=== PATIENT | male | born 1985 | race Caucasian/White ===

== ENCOUNTER 2016-10-22 18:38 | Emergency (ER) | payer MEDICAID, OTHER ==
[~2016-10-22] VITALS: Ht 177.8 cm; Wt 77.0 kg
[2016-10-22 18:44] VITALS: Ht 177.8 cm; Wt 77.0 kg
[2016-10-22] MEDS ORDERED: ASPIRIN 325 MG TAB PO STA (20:08)
[2016-10-22] MEDS ORDERED: LORAZEPAM 1 MG TAB PO ONE (20:30)
[2016-10-22 20:55] LABS: BASOPHIL # 0.1 10^3/ul (0.0-0.1); BASOPHILS % 1.3 % (0.0-2.0); EOSINOPHILS # 0.3 10^3/ul (0.0-0.5); EOSINOPHILS % 3.3 % (0.0-7.0); HEMOGLOBIN 11.5 g/dl (14.0-18.0); LYMPHOCYTES # 3.8 10^3/ul (0.8-2.9); LYMPHOCYTES % 37.1 % (15.0-51.0); MEAN CORPUSCULAR HEMOGLOBIN 22.7 pg (29.0-33.0); MEAN CORPUSCULAR HGB CONC 30.3 g/dl (32.0-37.0); MEAN CORPUSCULAR VOLUME 75.1 fl (82.0-101.0); MEAN PLATELET VOLUME 10.2 fl (7.4-10.4); MONOCYTE # 0.7 10^3/ul (0.3-0.9); MONOCYTES % 6.4 % (0.0-11.0); NEUTROPHIL # 5.3 10^3/ul (1.6-7.5); NEUTROPHILS % 51.5 % (39.0-77.0); PLATELET COUNT 300 10^3/UL (140-415); RED BLOOD COUNT 5.06 10^6/ul (4.70-6.10); RED CELL DISTRIBUTION WIDTH 18.3 % (11.5-14.5); WHITE BLOOD COUNT 10.3 10^3/ul (4.8-10.8)
[2016-10-22 21:16] LABS: INR 0.86; PROTIME 11.7 Sec (12.2-14.2); PT RATIO 0.9
[2016-10-22 21:17] LABS: PARTIAL THROMBOPLASTIN TIME 24.7 Sec (25.0-35.0)
[2016-10-22 21:21] LABS: ANION GAP 21 (8-16); BLOOD UREA NITROGEN 19 mg/dl (7-20); CALCIUM 9.6 mg/dl (8.4-10.2); CARBON DIOXIDE 30 mmol/L (21-31); CHLORIDE 97 mmol/L (97-110); CREATININE 0.89 mg/dl (0.61-1.24); GLUCOSE 93 mg/dl (70-220); POTASSIUM 5.1 mmol/L (3.5-5.1); SODIUM 143 mmol/L (135-144)
[2016-10-22 21:40] LABS: TROPONIN-I < 0.012 ng/ml (0.00-0.12)
--- NOTE | 2016-10-22 21:42 | RADRPT ---
PROCEDURE: XR Chest. CLINICAL INDICATION: Chest pain. TECHNIQUE: Single frontal view of the chest was obtained in an apical lordotic position. COMPARISON: None. FINDINGS: The cardiomediastinal silhouette is within normal limits. The lungs are clear. No signs of pleural f luid or pneumothorax are seen. The osseous structures and soft tissues are unremarkable. IMPRESSION: No evidence for active cardiopulmonary disease. RPTAT: [facility] Physician Brenda Date Time Electronically viewed and signed by Emilio Rosa Physician on 10/22/2016 21:41 RS/
--- NOTE | 2016-10-22 22:00 | ERD ---
ER Documentation Chief Complaint Date/Time DATE: 10/22/16 TIME: 21:47 Chief Complaint pressure like left sided shest pain x 1 day HPI This 30-year-old male patient presents to emergency department today for chest pain. Patient reports chest pain started 3 days ago but has worsened. Today patient reports that he feels palpitations, left-sided shooting sharp pain that radiates under left axilla. Patient reports shortness of breath, fatigue, and diaphoresis. 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 Patient has received suboxone, phenobarbital and clonidine today. Patient reports nervousness, anxiety. Strong family history for cardiovascular disease report that his father had a heart attack at age 50. Patient has not had any real medical evaluation laboratory testing or care in the last several years. ROS All systems reviewed and are negative except as per history of present illness. Allergies Allergies: Coded Allergies: erythromycin base (Verified Allergy, Unknown, 10/22/16) PMhx/Soc Hx Alcohol Use: Yes Hx Substance Use: Yes (HEROIN AND METH) Hx Tobacco Use: Yes Smoking Status: Current every day smoker Physical Exam Vitals Vital Signs Date Time Temp Pulse Resp B/P Pulse Ox O2 Delivery O2 Flow Rate FiO2 10/22/16 20:38 Nasal Cannula 2 10/22/16 18:44 97.5 106 20 130/80 100 Physical Exam Const: Well nourished, hydrated, articulate male patient in no acute Head: Atraumatic Eyes: Normal Conjunctiva, PERRLA, EOMI ENT: Normal External Ears, Nose and Mouth. Neck: Full range of motion..~ No meningismus. Resp: Chest clear to auscultation no rales wheezes or rhonchi Cardio: Regular rate and rhythm S1-S2, no S3-S4, no JVD, no carotid bruit Abd: Soft, non tender, non distended. Normal bowel sounds Skin: No petechiae or rashes Back: No midline or flank tenderness Ext: No cyanosis, or edema Neur: Awake and alert Psych: Normal Mood, hyper activity directed toward a caffeine leg, patient speech is clear, thoughts are precise. Result Diagram: 10/22/16203810/22/162038 Results 24 hrs Laboratory Tests Test 10/22/16 20:39 White Blood Count 10.310^3/ul Red Blood Count 5.0610^6/ul Hemoglobin 11.5g/dl Hematocrit 38.0% Mean Corpuscular Volume 75.1fl Mean Corpuscular Hemoglobin 22.7pg Mean Corpuscular Hemoglobin Concent 30.3g/dl Red Cell Distribution Width 18.3% Platelet Count 11303^3/UL Mean Platelet Volume 10.2fl Neutrophils % 51.5% Lymphocytes % 37.1% Monocytes % 6.4% Eosinophils % 3.3% Basophils % 1.3% Nucleated Red Blood Cells % 0.0/100WBC Neutrophils # 5.310^3/ul Lymphocytes # 3.810^3/ul Monocytes # 0.710^3/ul Eosinophils # 0.310^3/ul Basophils # 0.110^3/ul Nucleated Red Blood Cells # 0.010^3/ul Prothrombin Time 11.7Sec Prothrombin Time Ratio 0.9 INR International Normalized Ratio 0.86 Activated Partial Thromboplast Time 24.7Sec Sodium Level 143mmol/L Potassium Level 5.1mmol/L Chloride Level 97mmol/L Carbon Dioxide Level 30mmol/L Anion Gap 21 Blood Urea Nitrogen 19mg/dl Creatinine 0.89mg/dl Glucose Level 93mg/dl Calcium Level 9.6mg/dl Troponin I < 0.012ng/ml Current Medications Medications (Trade) Dose Ordered Sig/Frances Route PRN Reason Start Time Stop Time Status Last Admin Dose Admin Aspirin (Aspirin) 325 mg ONCE STAT PO 10/22/16 20:08 10/22/16 20:14 DC 10/22/16 20:36 Lorazepam (Ativan) 1 mg ONCE ONCE PO 10/22/16 20:30 10/22/16 20:31 DC 10/22/16 20:36 Interpretation text CBC shows no evidence of hemorrhage or infection Chemistry shows no evidence of significant electrolyte abnormalities or renal insufficiency Liver function tests shows no evidence of acute biliary or hepatic dysfunction Coagulation study showed no concerning coagulpathy Cardiac biomarkers show no evidence of acute myocardial injury or coronary ischemia Procedures/MDM EKG: Rate/Rhythm: Sinus tachycardia at a ventricular rhythm of 108 bpm QRS, ST, T-waves: No changes consistent w/ acute ischemia Impression: No evidence of ischemia or arrhythmia PROCEDURE: XR Chest. CLINICAL INDICATION: Chest pain. TECHNIQUE: Single frontal view of the chest was obtained in an apical lordotic position. COMPARISON: None. FINDINGS: The cardiomediastinal silhouette is within normal limits. The lungs are clear. No signs of pleural fluid or pneumothorax are seen. The osseous structures and soft tissues are unremarkable. IMPRESSION: No evidence for active cardiopulmonary disease. RPTAT: [facility] Physician Brenda Date Time Electronically viewed and signed by Physician Brenda on 10/22/2016 21:41 This 30-year-old male patient presents to emergency department with chest pain, shortness of breath, palpitations, and a strong cardiovascular history on father 's side with myocardial infarct at age 50. Patient is currently in a drug detox 8 days into a 3 day program, patient reports a 15 year history of methamphetamine and heroin use. Patients speech is clear but hyperactive movements noted. Patient is not pale no diaphoresis, acute VA is unlikely but will be evaluated with ECG and lab work. Troponin negative, CBC negative for infection or anemia. BMP negative for any electrolyte dysfunction. Patient received 325 mg aspirin 2, and 1 mg Ativan while in emergency department. Patient will be discharged back to care of drug detox with no additional medication. Return to emergency department if symptoms persist. I feel the patient is stable for discharge at this time. I have discussed results, examination findings, the treatment plan with the patient and family present prior to discharge. Indications for emergent reevaluation, side effects of medication were also discussed. All questions were answered. Patient verbalizes understanding and agrees with plan of care. Departure Diagnosis: Primary Impression: Chest pain Chest pain type: other chest pain Qualified Code: R07.89 - Other chest pain Additional Impression: Withdrawal symptoms, drug or narcotic Substance type: opioid Qualified Code: F11.23 - Opioid withdrawal Condition: Good Patient Instructions: Chest Pain, Uncertain Cause Additional Instructions: Thank you for for coming to [facility] for your care today. Please ask your nurse or provider if you have questions about your care today and do not leave until all your questions have been answered. Please use any medications given as directed and follow-up with your doctor (or the doctor you were referred to) in the next 2-3 days. If you do not have a primary care doctor you may follow up at the [facility] (listed below). You may also use motrin and tylenol as needed for fever and/or pain unless instructed otherwise by your provider or nurse. Indications for more urgent follow-up have been discussed, but you may return to the Emergency Department at ANY time for any worrisome or worsening symptoms. If you have abdominal pain, please know that no test or exam you received is perfect and you should follow up within 8 hours for continued pain. If you had any imaging studies today, such as an X-Ray or CT Scan, these studies will be reviewed later by a radiologist. You will be called if there are important findings that were not identified today, so make sure the contact information you provided at registration is correct. If you received any narcotic pain control medicine today, such as Vicodin, Morphine or Dilaudid, your coordination and judgment may be affected for a number of hours. Please do not drive or operate heavy machinery, and you may want someone to assist you at home. If you were given a prescription for narcotic medication, be aware that it is very addictive- use sparingly and only if necessary. FAUSTINO BRUNER Oct 22, 2016 21:58
[2016-10-22 22:09] VITALS: BP 108/77; PULSE 89; RESP 18; TEMP 98.4
== END 2016-10-22 22:10 | disposition home or self-care (01) ==
LOC: FTE 18:38
DX: R07.89 Other chest pain (principal); F11.23 Opioid dependence with withdrawal; F17.210 Nicotine dependence, cigarettes, uncomplicated
CPT/HCPCS: 71010; 80048; 84484; 85025; 85610; 85730; Z7502; Z7610